=== PATIENT | female | born 1965 | race Caucasian/White ===

== ENCOUNTER 2017-12-15 08:07 | Day surgery (SDC) | payer BC ==
[2017-12-10 12:41] LABS: BASOPHILS 0.5 % (0-2); EOSINOPHILS 5.4 % (0-7); HEMATOCRIT 40.7 % (36.0-48.0); HEMOGLOBIN 14.2 g/dL (12-16); IMMATURE GRANULOCYTES 0.2 % (0-5); MCH 30.1 pg (26.0-34.0); MCHC 34.9 g/dL (31.0-37.0); MCV 86.4 fL (80.0-100.0); MEAN PLATELET VOLUME 10.5 fL (7.4-10.4); MONOCYTES 6.1 % (2-11); NEUTROPHILS 63.8 % (40-80); PLATELET COUNT 246 10x3/uL (130-400); RBC 4.71 10x6/uL (4.00-5.40); RDW 13.5 % (11.5-14.5); WBC 8.9 10x3/uL (4.8-10.8)
[2017-12-10 12:59] LABS: ANION GAP 11.7 mmol/L (8-16); CALCIUM 9.8 mg/dL (8.5-10.1); CARBON DIOXIDE 28.6 mmol/L (21.0-32.0); CREATININE - SERUM 1.2 mg/dL (0.6-1.3); POTASSIUM - SERUM 3.3 mmol/L (3.5-5.1)
[~2017-12-15] VITALS: Ht 177.8 cm; Wt 111.1 kg
[~2017-12-15 08:07] MED LIST: MAXZIDE-25 MG T1 TAB PO; MOBIC7.5 MG PO; MOTRIN600 MG PO; NORVASC5 MG PO; PERCOCET 10/3251 TA1 PO; PRAVACHOL20 MG
[2017-12-15 08:22] VITALS: BP 124/64; Ht 177.8 cm; Wt 111.1 kg
[2017-12-15 19:09] VITALS: BP 146/74
[2017-12-15] MEDS ORDERED: MOTRIN600 MG PEG (19:20)
[2017-12-15] MEDS ORDERED: PERCOCET 5-3251 TAB PO (19:20)
[2017-12-15 19:41] VITALS: BP 124/61
[2017-12-15 20:10] VITALS: BP 130/72
== END 2017-12-15 22:34 | disposition home or self-care (01) ==
LOC: D.OPS 08:07 → D.PAN 09:00 → D.OPS 09:00 → D.LD 19:02 → D.OPS 22:34
PROVIDERS: Obstetrics & Gynecology
DX: N83.02 Follicular cyst of left ovary (principal); N83.01 Follicular cyst of right ovary; N83.202 Unspecified ovarian cyst, left side; N83.201 Unspecified ovarian cyst, right side; N83.12 Corpus luteum cyst of left ovary; N83.11 Corpus luteum cyst of right ovary; D21.9 Benign neoplasm of connective and other soft tissue, unspecified; Z01.812 Encounter for preprocedural laboratory examination